=== PATIENT | female | born 1950 ===

== ENCOUNTER 2022-03-09 18:00 | Observation (INO) | payer MEDICARE, OTHER, SELFPAY ==
[2022-03-09 18:11] VITALS: BP 185/83; PULSE 50; RESP 16; TEMP 36.6; O2SAT 100
[2022-03-09 19:56] VITALS: BP 161/74; PULSE 54; RESP 16; TEMP 37; O2SAT 99
[2022-03-09] MEDS: Apixaban 5 MG TAB PO (19:59)
[2022-03-09] MEDS: Gabapentin 300 MG CAP 600 MG PO (19:59)
[2022-03-09] MEDS: Budesonide 0.25 MG/2 ML UPD VIAL UPD (20:01)
[2022-03-09] MEDS: rOPINIRole 0.5 MG TAB 0.25 MG PO (20:01)
[2022-03-09 21:14] VITALS: PULSE 63
[2022-03-09] MEDS: traZODone 50 MG TAB PO (22:10)
[2022-03-09] MEDS: rOPINIRole 0.5 MG TAB PO (22:10)
[2022-03-09 23:35] VITALS: BP 121/61; PULSE 64; RESP 16; TEMP 37.1; O2SAT 95
[2022-03-10] VITALS (7 sets, daily range): BP systolic 145–171; BP diastolic 74–85; PULSE 59–65; RESP 16–18; TEMP 36.5–37.5; O2SAT 97–99
[2022-03-10 06:26] LABS: Abs Immature Grans 0.02 10^3/uL (0.0-0.06); Absolute Basophil Count 0.05 10^3/uL (0.0-0.2); Absolute Eosinophil Count 0.27 10^3/uL (0.0-0.7); Absolute Lymphocyte Count 1.75 10^3/uL (1.2-3.4); Absolute Neutrophil Count 4.62 10^3/uL (1.2-6.7); Basophils % 0.7; Eosinophils % 3.7; HCT 37.4 % (36.0-46.0); HGB 11.8 g/dL (11.2-15.7); Immature Grans % 0.3; Lymphocytes % 23.9; MCH 29.6 pg (27.0-33.0); MCHC 31.6 % (32.0-36.0); MCV 94 fL (80-95); MPV 10.7 fL (8.0-11.0); Monocytes % 8.2; Neutrophils % 63.2; Platelet Count 330 10^3/uL (130-400); RBC 3.99 10^6/uL (3.93-5.22); RDW 13.6 % (11.7-14.6); RDW-SD 46.6 fL; WBC 7.31 10^3/uL (4.4-10.8)
[2022-03-10 06:35] LABS: BUN 12 mg/dL (7-18); CREATININE 1.2 mg/dL (0.55-1.02); Calcium 8.8 mg/dL (8.5-10.1); Chloride 106 mmol/L (98-107); Estimated GFR 44.54 (mL/min/1.73m2); Glucose 271 mg/dL (74-106); Magnesium 1.9 mg/dL (1.8-2.4); Potassium 3.5 mmol/L (3.5-5.1); Sodium 141 mmol/L (136-145)
--- NOTE | 2022-03-10 08:11 | W.PM.HP.N ---
Date of service: 03/09/22 Time of Service: 18:00 Assessment and Plan Assessment and plan (1) Hypoglycemia: Start date: 03/09/22 Start time: 18:00 Status: Acute Assessment and plan: Per HPI, now AAOx 3, Fingerstick in 200's. hold insulin at this time. will start in am Carb counting diet, no additional insulin given situation, admits to not eating will likely be discharged in am (2) Bradycardia: Start date: 03/09/22 Start time: 18:00 Status: Acute Assessment and plan: Has been in low 50's-60's, nothing concerning as she is asymptomatic will keep tele on overnight and keep as obs (3) Restless leg syndrome: Start date: 03/09/22 Start time: 18:00 Status: Chronic Assessment and plan: Continue home meds (4) Pulmonary embolism: Start date: 03/09/22 Start time: 18:00 Status: Chronic Assessment and plan: States will need life long anticoagulation States she does have a blood disorder but does not know what it is (5) Manic depressive disorder: Start date: 03/09/22 Start time: 18:00 Status: Chronic Assessment and plan: takes depression medication for this will continue lamictal and zoloft (6) Insulin dependent diabetes mellitus: Start date: 03/09/22 Start time: 18:00 Status: Chronic Assessment and plan: She was hypoglycemic this am, now in the 200's AAOx 3 (7) GERD (gastroesophageal reflux disease): Start date: 03/09/22 Start time: 18:00 Status: Chronic Assessment and plan: continue home medications (8) COPD (chronic obstructive pulmonary disease): Start date: 03/09/22 Start time: 18:00 Status: Chronic Assessment and plan: continue home meds not exacerbated at this time (9) Chronic pain syndrome: Start date: 03/09/22 Start time: 18:00 Status: Chronic Assessment and plan: On tramadol and gabapentin, d/t shoulder surgery, in the past continue (10) Arthritis: Start date: 03/09/22 Start time: 18:00 Status: Chronic Assessment and plan: as above discussed with Dr. Ruby History of Present Illness History of Present Illness Chief Complaint: hypoglycemia, bradycardia Narrative: 71 y.o female with PMH COPD, PE, RLS, Manic depression, Mirgraines, GERD, DM, Chronic pain, arthritis, transferred from [facility] d/t no bed availability. She was found to have low blood sugar and low HR in the ED. She was asked to be transferred to [facility] for admission for observation. She has been accepted for obs on tele. She is AAOX3 answering questions. Can not recall why she was brought to the hospital. States that she did not eat this morning. Explanation of why she brought in was given. Her HR is stable she is on tele, BS in 200 at this time, holding home meds and just doing sensitive sliding scale. Denies CP, SOB. Review of Systems All systems reviewed & are unremarkable except as noted in HPI and below PFSH All Active Problems Hypoglycemia (Acute) Bradycardia (Acute) Manic depressive disorder (Chronic) Arthritis (Chronic) GERD (gastroesophageal reflux disease) (Chronic) Insulin dependent diabetes mellitus (Chronic) Pulmonary embolism (Chronic) Chronic pain syndrome (Chronic) Restless leg syndrome (Chronic) COPD (chronic obstructive pulmonary disease) (Chronic) Medical History Fracture of surgical neck of humerus Surgical History History of left hip replacement Social History Smoking/Tobacco Use Status: Never Smoking risk assessment performed?: Yes Alcohol Intake: never Substance use type: does not use Do you feel safe at home: Yes Additional Social history: alf resident Meds Allergies and Home Medications Allergies Allergy/AdvReac Type Severity Reaction Status Date / Time Penicillins Allergy Other (See Verified 03/09/22 18:05 Comment) Sulfa (Sulfonamide Allergy Other (See Verified 03/09/22 18:05 Antibiotics) Comment) Home Medications Medication Instructions Recorded Confirmed Type albuterol sulfate 90 mcg/actuation 2 puff inhalation Q6H PRN PRN 03/09/22 03/09/22 History aerosol inhaler (Proventil HFA) apixaban 5 mg tablet 5 mg PO BID 03/09/22 03/09/22 History budesonide-formoterol HFA 160 2 puff inhalation BID 03/09/22 03/10/22 History mcg-4.5 mcg/actuation aerosol inhaler cholecalciferol (vitamin D3) 1,250 1,250 mcg PO DAILY 03/09/22 03/09/22 History mcg (50,000 unit) tablet gabapentin 600 mg tablet 600 mg PO TID 03/09/22 03/09/22 History insulin aspart U-100 100 unit/mL See Protocol subcut 03/09/22 History (3 mL) subcutaneous pen (Novolog Flexpen U-100 Insulin aspart) insulin detemir U-100 100 unit/mL 12 unit subcut BID 03/09/22 03/09/22 History (3 mL) subcutaneous pen (Levemir FlexTouch U-100 Insulin) ipratropium bromide 17 2 puff inhalation BID 03/09/22 03/09/22 History mcg/actuation HFA aerosol inhaler (Atrovent HFA) lamotrigine 200 mg tablet 200 mg PO DAILY 03/09/22 03/09/22 History (Lamictal) magnesium oxide 400 mg PO DAILY 03/09/22 03/09/22 History mirabegron 50 mg tablet,extended 50 mg PO DAILY 03/09/22 03/09/22 History release 24 hr montelukast 10 mg tablet 10 mg PO DAILY 03/09/22 03/09/22 History omeprazole 40 mg capsule,delayed 40 mg PO DAILY 03/09/22 03/09/22 History release ropinirole 0.25 mg tablet 0.25 mg PO TID 03/09/22 03/09/22 History ropinirole 0.5 mg tablet 0.5 mg PO HS 03/09/22 03/09/22 History sertraline 100 mg tablet 100 mg PO DAILY 03/09/22 03/09/22 History tramadol 50 mg tablet 50 mg PO Q6H PRN PRN 03/09/22 03/09/22 History trazodone 50 mg tablet 25 mg PO HS 03/09/22 03/09/22 History trimethoprim 100 mg tablet 100 mg PO QMWF 03/09/22 03/09/22 History Exam Const General: cooperative, comfortable and no acute distress Nutritional Appearance: obese Orientation: alert, awake and oriented x3 Eyes Eyelids: eyelids normal Pupils: PERRL EOM: EOM intact bilaterally Neck Neck: normal visual inspection and no JVD Lymphatic: no lymphadenopathy noted Resp Effort & Inspection: normal respiratory effort Auscultation: clear to auscultation bilaterally Cardio Jugular venous pressure: no JVD Rhythm: regular rhythm Heart Sounds: S1 normal GI Auscultation: normal bowel sounds General: No CVA tenderness and deferred Skin General skin exam: no rashes or lesions noted Neuro General: patient alert, patient awake and patient oriented x3 Cognition: normal cognition Speech: speech normal Gait: normal gait Extrem General: normal to inspection, full ROM and no clubbing, cyanosis or edema Results Labs Result diagrams: 03/10/22 06:10 03/10/22 06:10 Labs: Laboratory Results - last 24 hr 03/10/22 03/10/22 06:10 06:10 WBC 7.31 RBC 3.99 Hgb 11.8 Hct 37.4 MCV 94 MCH 29.6 MCHC 31.6 L RDW 13.6 Plt Count 330 MPV 10.7 Immature Gran % 0.3 Neutrophils % 63.2 Lymphocytes % 23.9 Monocytes % 8.2 Eosinophils % 3.7 Basophils % 0.7 Nucleated RBC % 0.0 Absolute Neutrophils 4.62 Absolute Lymphocytes 1.75 Absolute Monocytes 0.60 Absolute Eosinophils 0.27 Absolute Basophils 0.05 Sodium 141 Potassium 3.5 Chloride 106 Carbon Dioxide 28.0 Anion Gap 7.0 BUN 12 Creatinine 1.2 H Estimated GFR/1.73 m2 44.54 Glucose 271 H Calcium 8.8 Magnesium 1.9 Last Vital Signs Temp 37.5 C 03/10/22 07:28 Pulse 65 03/10/22 07:28 Resp 18 03/10/22 07:28 BP 158/74 H 03/10/22 07:28 Pulse Ox 98 03/10/22 07:28
[2022-03-10] MEDS: Insulin Aspart 300 UNITS/3 ML PEN SC ×2 (08:39→11:59)
[2022-03-10] MEDS: Budesonide/Formoterol 160/4.5 6 GM 60 PUFF INH IH (08:39)
[2022-03-10] MEDS: Mirabegron 50 MG TABCR PO (08:44)
[2022-03-10] MEDS: Montelukast 10 MG TAB PO (08:44)
[2022-03-10] MEDS: Cholecalciferol (Vitamin D3) 1,000 UNIT TAB 5000 UNITS PO (08:44)
[2022-03-10] MEDS: Gabapentin 300 MG CAP 600 MG PO ×2 (08:44→13:37)
[2022-03-10] MEDS: Magnesium Oxide 400 MG TAB PO (08:45)
[2022-03-10] MEDS: rOPINIRole 0.5 MG TAB 0.25 MG PO ×2 (08:45→13:37)
[2022-03-10] MEDS: Apixaban 5 MG TAB PO (08:45)
[2022-03-10] MEDS: Omeprazole 20 MG CAPCR PO (08:45)
[2022-03-10] MEDS: Sertraline 100 MG TAB PO (08:45)
[2022-03-10] MEDS: lamoTRIgine 100 MG TAB 200 MG PO (08:45)
--- NOTE | 2022-03-10 14:15 | W.PM.DS.N ---
Date of service: 03/10/22 Time of Service: 08:00 DS: Diagnosis Discharge Diagnosis (1) Hypoglycemia: Start date: 03/10/22 Start time: 08:00 Status: Resolved Asessment and Plan: Patient has not had hypoglycemia since arrival Fingersticks have been in the 200's She can return to LTC facility continue CHO diet and will resume home medication. 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 (3) Restless leg syndrome: Start date: 03/10/22 Start time: 08:00 Status: Chronic Asessment and Plan: continue home medication (4) Pulmonary embolism: Status: Chronic (5) Manic depressive disorder: Start date: 03/10/22 Start time: 08:00 Status: Chronic Asessment and Plan: Continue home medication (6) Insulin dependent diabetes mellitus: Start date: 03/10/22 Start time: 08:00 Status: Chronic Asessment and Plan: as above, will continue (7) GERD (gastroesophageal reflux disease): Start date: 03/10/22 Start time: 08:00 Status: Chronic Asessment and Plan: GERD (8) COPD (chronic obstructive pulmonary disease): Status: Chronic (9) Chronic pain syndrome: Start date: 03/10/22 Start time: 08:00 Status: Chronic Asessment and Plan: Tramadol and gabapentin continue (10) Arthritis: Start date: 03/10/22 Start time: 08:00 Status: Chronic Asessment and Plan: as above discussed with Dr Ruby Discharge Plan Disposition Patient Disposition: OTHER Condition: Good Discharge Details Reason For Visit: Hypoglycemia,Bradycardia Admit Date/Time: 03/09/22 18:00 Admit Provider: Pepe Ruby Attending Provider: Pepe Ruby Hospital Course Hospital Course: 71 y.o female with PMH COPD, PE, RLS, Manic depression, Mirgraines, GERD, DM, Chronic pain, arthritis, transferred from [facility] d/t no bed availability yesterday. She was found to have low blood sugar and low HR in the ED. She was asked to be transferred to [facility] for admission for observation. She was accepted for obs on tele. She is AAOX3 answering questions. She is AAO x3. Fingersticks have been in the 200's. Tele reveals that she has only had a low of 59 once otherwise she has stayed in the 60's. Denies CP, SOB. Therefore she is being discharged back to her LTC facility. She denies CP, SOB Home Meds and New Rx's Prescriptions: Continued Atrovent HFA 17 mcg/actuation Hfa Aerosol Inhaler 2 puff INHALATION BID apixaban 5 mg Tablet 5 mg PO BID gabapentin 600 mg Tablet 600 mg PO TID lamotrigine [Lamictal] 200 mg Tablet 200 mg PO DAILY omeprazole 40 mg Capsule,Delayed Release(Dr/Ec) 40 mg PO DAILY montelukast 10 mg Tablet 10 mg PO DAILY albuterol sulfate [Proventil HFA] 90 mcg/actuation Hfa Aerosol Inhaler 2 puff INHALATION Q6H PRN PRN insulin aspart U-100 [Novolog Flexpen U-100 Insulin] 100 unit/mL (3 mL) Insulin Pen See Protocol SUBCUT Protocol: Insulin Infusion Protocol Text: a. Independent double checks of all calculations, solution preparations, and pump rates are required. b. Discontinue subcutaneous insulin and any oral anti-hyperglycemic agents while on insulin infusion. c. Use low sorbing tubing (Nitroglycerin tubing) and flush with 20ml insulin infusion solution. d. Inline filters should NOT be used. e. Change insulin infusion bag every 24 hours. Levemir FlexTouch U-100 Insuln 100 unit/mL (3 mL) Insulin Pen 12 unit SUBCUT BID budesonide-formoterol 160-4.5 mcg/actuation Hfa Aerosol Inhaler 2 puff INHALATION BID cholecalciferol (vitamin D3) 1,250 mcg (50,000 unit) Tablet 1,250 mcg PO DAILY mirabegron 50 mg Tablet Extended Release 24 Hr 50 mg PO DAILY magnesium oxide 400 mg magnesium Tablet 400 mg PO DAILY trazodone 50 mg Tablet 25 mg PO HS sertraline 100 mg Tablet 100 mg PO DAILY trimethoprim 100 mg Tablet 100 mg PO QMWF tramadol 50 mg Tablet 50 mg PO Q6H PRN PRN ropinirole 0.25 mg Tablet 0.25 mg PO TID ropinirole 0.5 mg Tablet 0.5 mg PO HS Discharge Instructions Instructions: Hypoglycemia in a Person with Diabetes (DC), Bradycardia (DC) Additional Instructions: Follow up with her PCP as needed. Activity:: Activity as Tolerated Equipment/Supplies:: No Equipment Needed Diet:: Carb Counting Discharge Orders Discharge Orders: Discharge Order (Routine); Ordered 03/10/22 Ordered By: Jane Whitfield DS: Summary Time Spent with Patient providing and/or coordinating discharge services: Less than 30 minutes Status at Discharge Functional status at discharge: independent ambulation Overall status at discharge: patient is back to baseline Mental Status: mental status grossly normal Speech and Movement: speech and movement normal Mood: congruent mood Affect: normal affect Exam Const General: cooperative, healthy appearing, comfortable and no acute distress Nutritional Appearance: overweight Orientation: alert, awake and oriented x3 Eyes Pupils: PERRL EOM: EOM intact bilaterally Neck Neck: full ROM and no lymphadenopathy Lymphatic: no lymphadenopathy noted Chest Chest: normal inspection of the chest Resp Effort & Inspection: normal respiratory effort Auscultation: clear to auscultation bilaterally Cardio Jugular venous pressure: no JVD Rate: regular rate Rhythm: regular rhythm Heart Sounds: S1 normal and S2 normal GI Inspection: normal to inspection Palpation: soft and no hepatosplenomegaly Percussion: normal to percussion Skin General skin exam: no rashes or lesions noted Neuro General: patient alert, patient awake and patient oriented x3 Extrem General: normal to inspection and full ROM Psych Mental Status: mental status grossly normal Speech and Movement: speech and movement normal Mood: congruent mood Affect: normal affect DS: Data Vitals/I&O Vitals and I&O: Vital Signs Temperature 37.1 C 03/10/22 11:22 Temperature Source Tympanic 03/10/22 11:22 Pulse 59 L 03/10/22 11:22 Pulse Rhythm Regular 03/10/22 09:26 Respiratory Rate 16 03/10/22 11:22 Respiratory Effort 03/10/22 09:26 Respiratory Depth Normal 03/10/22 09:26 Respiratory Pattern Normal 03/10/22 09:26 Blood Pressure 171/85 H 03/10/22 11:22 Pulse Oximetry 99 03/10/22 11:22 Oxygen Delivery Method Room Air 03/10/22 11:22 Oxygen Flow Rate 0 03/10/22 11:22 Pain Level 0 03/10/22 11:22 Comment 03/09/22 19:56 Intake & Output 03/09/22 03/10/22 03/10/22 23:59 11:59 23:59 Intake Total 240 / 240 Output Total 350 / 350 Balance 240 / 240 -350 / -350 Weight 74.389 kg Intake: Oral 240 / 240 Output: Urine 350 / 350 Other: Urine Color Straw Urine Appearance Clear Urine Odor Normal Comment patient was dry Stool Size Copious Stool Characteristics Soft Formed Voiding Methods Toilet Data Completed and Pending Labs on day of discharge: Labs from last 24 hours 03/10/22 03/10/22 06:10 06:10 WBC 7.31 RBC 3.99 Hgb 11.8 Hct 37.4 MCV 94 MCH 29.6 MCHC 31.6 L RDW 13.6 Plt Count 330 MPV 10.7 Immature Gran % 0.3 Neutrophils % 63.2 Lymphocytes % 23.9 Monocytes % 8.2 Eosinophils % 3.7 Basophils % 0.7 Nucleated RBC % 0.0 Absolute Neutrophils 4.62 Absolute Lymphocytes 1.75 Absolute Monocytes 0.60 Absolute Eosinophils 0.27 Absolute Basophils 0.05 Sodium 141 Potassium 3.5 Chloride 106 Carbon Dioxide 28.0 Anion Gap 7.0 BUN 12 Creatinine 1.2 H Estimated GFR/1.73 m2 44.54 Glucose 271 H Calcium 8.8 Magnesium 1.9 PFSH All Active Problems Manic depressive disorder (Chronic) Arthritis (Chronic) GERD (gastroesophageal reflux disease) (Chronic) Insulin dependent diabetes mellitus (Chronic) Pulmonary embolism (Chronic) Chronic pain syndrome (Chronic) Restless leg syndrome (Chronic) COPD (chronic obstructive pulmonary disease) (Chronic) Medical History Fracture of surgical neck of humerus Surgical History History of left hip replacement Social History (Reviewed 03/10/22 @ 14: by Jane Whitfield NP) Smoking/Tobacco Use Status: Never Smoking risk assessment performed?: Yes Alcohol Intake: never Substance use type: does not use Do you feel safe at home: Yes Additional Social history: longterm resident
--- NOTE | 2022-03-10 15:59 | CMDISCH_ITS ---
- If Service Date Differs Date of service: 03/10/22 Time of Service: 15:59 LACE Index Scoring Tool - Questions: Length of Stay (in days): 1 Acuity (Admit via E.D.?): No Comorbidities: Diabetes w/o Complication, Chronic Pulmonary Disease E.D. Visits: 0 - Answers: Total Score: 4 Risk of Readmission: Low Risk Care Management Discharge Reason for Hospitalization: Hypoglycemia, bradycardia Discharge Plan: Shania will return to [facility], where she is a resident. She will transport via [email or web address] private vehicle, coordinated by CM. She will follow up with facility providers and her discharge plan of care. Patient/Family Education Needs: Review discharge instructions and limitations, discussion of self care needs including ask me three and goals of care. Services Needed at Discharge: Nursing Home Facility ([place]), Transportation ([employer] vehicle)
--- NOTE | 2022-03-10 16:01 | INITIAL_ITS ---
- If Service Date Differs Date of service: 03/10/22 Time of Service: 16:02 Care Management Initial Assess REASON FOR HOSPITALIZATION:: Hypoglycemia, bradycardia PAST MEDICAL HISTORY/PAST SURGICAL HISTORY:: All Active Problems . Hypoglycemia (Acute). Bradycardia (Acute). Manic depressive disorder (Chronic). Arthritis (Chronic). GERD (gastroesophageal reflux disease) (Chronic). Insulin dependent diabetes mellitus (Chronic). Pulmonary embolism (Chronic). Chronic pain syndrome (Chronic). Restless leg syndrome (Chronic). COPD (chronic obstructive pulmonary disease) (Chronic). Medical History . Fracture of surgical neck of humerus. Surgical History . History of left hip replacement PREVIOUS FUNCTIONAL STATUS/SOCIAL/FAMILY SUPPORTS:: Shania lives at [facility], and has been there about a year. She states living there was her family's plan, not her own. She stated that she would like to be closer to family, but there have been barriers to her transferring to a different facility. She has a sister in [place] and her son, Carlos, lives in [facility]. Her keith higginsband about 6 years ago, which has been difficult for her. She requires assistance with her ADL's. CURRENT FUNCTIONAL STATUS:: Shania was sitting up in a chair when CM met with her. She stated that she is feeling good today, but that she didn't ever feel poorly. She stated that she is very happy with the care she has received at [facility]. Per report, she is at her baseline, and will be discharged today. CM will coordinate her return to [facility]. CM will continue to follow. ADVANCE DIRECTIVES:: Not on file. Has patient been provided with info about the portal/API?: Yes Did the patient sign up for the portal?: No CODE STATUS:: Full Code INSURANCE COVERAGE / FINANCIAL ISSUES:: [facility]/ [facility] [email or web address] plan CURRENT HOME/COMMUNITY SERVICES/EQUIPMENT:: Shania lives at [facility], where her needs are met. PRIMARY CARE PHYSICIAN:: Facility provider, out of area. POTENTIAL DISCHARGE NEEDS:: Coordinated discharge to [facility]. PATIENT/FAMILY EDUCATION NEEDS:: Review discharge instructions and limitations, discussion of self care needs including ask me three and goals of care. ANTICIPATED BARRIERS TO DISCHARGE:: None. TRANSPORTATION:: Via [employer] private vehicle. PLAN:: Shania will return to [facility] when medically cleared, anticipate today. She will transport via [facility] [employer] van, coordinated by CM. She will follow up with facility providers and her discharge plan of care.
== END 2022-03-10 16:10 | disposition other institution (70) ==
PROVIDERS: Nurse Practitioner Family; Admitting Provider Family Medicine; Visit Provider Family Medicine
DX: E11.649 Type 2 diabetes mellitus with hypoglycemia without coma (principal); R00.1 Bradycardia, unspecified; Z79.4 Long term (current) use of insulin; J44.9 Chronic obstructive pulmonary disease, unspecified; Z86.711 Personal history of pulmonary embolism; G25.81 Restless legs syndrome; K21.9 Gastro-esophageal reflux disease without esophagitis; G43.909 Migraine, unspecified, not intractable, without status migrainosus; F31.9 Bipolar disorder, unspecified; G89.4 Chronic pain syndrome; Z96.642 Presence of left artificial hip joint
CPT/HCPCS: 36415; 36416; 80048; 82962; 96372; 83735; 85025; 99217; 99219; G0378; J7633